=== PATIENT | male | born 1975 | race Caucasian/White ===

== ENCOUNTER 2020-05-14 12:40 | Emergency (ER) | payer BC ==
[~2020-05-14] VITALS: Ht 200.7 cm; Wt 108.9 kg
[2020-05-14] MEDS ORDERED: INTESTINEX680 M1 PO (16:38)
[2020-05-14] MEDS ORDERED: KETO10TA2 PO (16:38)
[2020-05-14] MEDS ORDERED: PEPCID AC20 MG PO (16:38)
[2020-05-14] MEDS ORDERED: CLINDAMYCIN HC300 MG PO (16:38)
== END 2020-05-14 16:55 | disposition home or self-care (01) ==
LOC: ER 12:40
DX: K04.7 Periapical abscess without sinus (principal)

== ENCOUNTER → 2022-11-01 | Emergency (ER) | payer BC ==
[~2022-11-01] MED LIST: CLINDAMYCIN HC300 MG PO; INTESTINEX680 M1 PO; KETO10TA2 PO; PEPCID AC20 MG PO
== END | disposition left against medical advice (07) ==
LOC: ER 14:04
DX: Z53.21 Procedure and treatment not carried out due to patient leaving prior to being seen by health care provider (principal)

== ENCOUNTER → 2023-09-22 | Outpatient (CLI) | payer BC ==
[2023-09-22 10:36] LABS: RH POSITIVE
[2023-09-23 10:06] LABS: FOLLICLE STIMULATING HORMONE 27.3 mIU/mL (1.5-12.4); HEPATITIS B CORE IGM Negative (Negative); HEPATITIS C VIRUS ANTIBODY Non Reactive (Non Reactive); LEUTEINIZING HORMONE 14.1 mIU/mL (1.7-8.6); PROLACTIN 12.9 ng/mL (3.9-22.7)
[2023-09-23 14:59] LABS: RAPID PLASMA REAGIN NONREACTIVE BY RPR (NONREACTIVE)
[2023-09-23 22:05] LABS: chla t Negative (Negative); neiss Negative (Negative)
== END | disposition home or self-care (01) ==
LOC: LAB 08:28
PROVIDERS: ATTEND Obstetrics & Gynecology Reproductive Endocrinology
DX: N34.1 Nonspecific urethritis (principal); Z11.3 Encounter for screening for infections with a predominantly sexual mode of transmission